=== PATIENT | female | born 1955 | race Caucasian/White ===

== ENCOUNTER 2023-05-30 09:09 | Day surgery (SDC) | payer MEDICARE, OTHER, SELFPAY ==
[2023-05-30 10:04] VITALS: BP 114/66; PULSE 66; RESP 18; TEMP 36.4; O2SAT 100
[2023-05-30] MEDS: LACTATED RINGERS 1,000 ML 42 ML IV (10:08)
--- NOTE | 2023-05-30 10:37 | PM.HP.1 ---
History of Present Illness History of Present Illness Date Patient Seen: 05/30/23 Time Patient Seen: 10:37 Chief complaint: Screening Colonoscopy Narrative: 67-year-old woman here for screening colonoscopy. Last colonoscopy 10 years ago normal. No family history of intestinal malignancy. No abdominal concerns today. [facility] Surgical History Status post appendectomy Social History Smoking Status: Current some day smoker alcohol intake: current Meds Home Medications and Allergies Home Medications Medication Instructions Recorded Confirmed Type [MULTIVITAMIN] ##0 01/14/11 History IBUPROFEN (Ibuprofen) 200 mg PO PRN ##0 01/17/11 History sodium,potassium,mag sulfates 17.5 See Rx Instructions PO .COMPLEX 03/20/23 Rx gram-3.13 gram-1.6 gram oral soln #354 mL (Suprep Bowel Prep Kit) Allergies Allergy/AdvReac Type Severity Reaction Status Date / Time codeine [CODEINE] Allergy Mild NAUSEA Verified 05/30/23 09:58 hydrocodone [From VICODIN] Allergy Unknown N/V Verified 05/30/23 09:58 Exam Vital Signs (past 8 hours): - 05/30/23 10:04 Temperature 97.5 F L Pulse Rate 66 Respiratory Rate 18 Blood Pressure 114/66 Pulse Oximetry 100 Oxygen Delivery Method Room Air Oxygen Delivery Method Room Air Narrative Exam Narrative: General adult woman alert oriented no acute distress Chest nonlabored respiration Extremities warm well perfused Assessment & Plan Assessment & Plan narrative: The patient requires colorectal screening and colonoscopy is recommended. Technical details were discussed. Risks, benefits, alternatives explained. Risks including but not limited to myocardial infarction, aspiration, bleeding, pain, missed lesion, incomplete examination, need for further radiographic studies, colonic perforation, and need for major abdominal surgery were discussed. All questions were answered to their satisfaction, and they are in agreement with this plan.
[2023-05-30 11:02] VITALS: BP 82/56; PULSE 68; RESP 18; O2SAT 100
[2023-05-30 11:07] VITALS: BP 87/58; PULSE 61; RESP 16; O2SAT 100
--- NOTE | 2023-05-30 11:11 | P.OP.COLON_ITS ---
Operative Date/Time/Diagnoses Date of procedure: 05/30/23 Time of procedure: 11:11 Pre-op diagnosis: Colorectal screening Procedure & Clinicians Study performed: Colonoscopy Same procedure as scheduled: Yes Indications: Colorectal screening Surgeon: Felipe Maharaj Procedure Notes Procedure in detail: The history and physical was performed/updated and the patient is ASA class is 2. The procedure was discussed in detail with the patient. Potential risks complications including infection, bleeding, missed diagnosis, perforation, need for surgery, and were explained. Their questions were answered and informed consent was obtained. Patient was brought to the procedure room and placed standard monitoring equipment. The patient's vital signs were monitored continuously throughout the entire procedure. Prior to starting time-out was performed. The patient was placed in the left lateral recumbent position. Procedural sedation was administered by anesthesia. Examination began with a thorough inspection of the perianal area there was no evidence of fissures, fistulae, external hemorrhoids or cutaneous malignancy. The colonoscopy scope was then placed into the anal canal and was advanced to the cecum, which was identified by the ileocecal valve , the appendiceal orifice and the confluence of the taenia. The scope was then slowly withdrawn examining colon thoroughly in all directions, irrigating it of any residual stool. The scope was retroflexed within the rectum The patient tolerated the procedure well. They will be discharged once criteria are met. The prep was of fair quality. The withdrawl time was 7 minutes. FINDINGS * Unremarkable colonoscopy. No masses polyps or inflammation. * Internal hemorrhoids Specimen(s): none sent Impression: Normal colonoscopy Post-procedure Recommendations: Colonoscopy in 10 years and High fiber diet Disposition: same day surgery
[2023-05-30 11:12] VITALS: BP 84/57; PULSE 59; RESP 20; O2SAT 100
[2023-05-30 11:20] VITALS: BP 88/61; PULSE 59; RESP 13; O2SAT 100
[2023-05-30 11:30] VITALS: BP 96/61; PULSE 53; RESP 15; O2SAT 100
== END 2023-05-30 11:35 | disposition home or self-care (01) ==
PROVIDERS: PCP Family Medicine; Referring Provider Surgery; Visit Provider Surgery
PROC: 0DJD8ZZ Inspection of Lower Intestinal Tract, Via Natural or Artificial Opening Endoscopic (ICD-10-PCS; CPT 45378; principal; 2023-05-30 10:30)
DX: Z12.11 Encounter for screening for malignant neoplasm of colon (principal); K64.8 Other hemorrhoids
CPT/HCPCS: G0121; J2704